=== PATIENT | female | born 1970 | race Caucasian/White ===

== ENCOUNTER 2016-10-08 12:02 | Emergency (ER) | payer SELFPAY ==
[~2016-10-08] VITALS: Ht 175.3 cm; Wt 61.2 kg
[~2016-10-08 12:02] MED LIST: IBUPROFEN200 MG PO; IBUPROFEN600 MG PO; METHOCARBAMOL750 MG PO; NAPROXEN500 MG PO
[2016-10-08] MEDS ORDERED: IBUPROFEN200 MG PO (12:12)
[2016-10-08] MEDS ORDERED: TYLENOL325 MG PO (12:12)
== END 2016-10-08 12:17 | disposition home or self-care (01) ==
LOC: ED 12:02
DX: Z00.8 Encounter for other general examination (principal)

== ENCOUNTER 2016-11-08 08:11 | Emergency (ER) | payer BC ==
[~2016-11-08] VITALS: Ht 175.3 cm; Wt 59.0 kg
[~2016-11-08 08:11] MED LIST changes: +TYLENOL325 MG PO
[2016-11-08] MEDS ORDERED: NORCO 5-325 TA1 EACH PO (08:36)
[2016-11-08] MEDS ORDERED: PENICILLIN V P500 MG PO (08:36)
[2016-11-08] MEDS ORDERED: FLAGYL500 MG PO (08:36)
== END 2016-11-08 09:00 | disposition home or self-care (01) ==
LOC: ED 08:11
DX: K04.7 Periapical abscess without sinus (principal); F17.200 Nicotine dependence, unspecified, uncomplicated; Z90.49 Acquired absence of other specified parts of digestive tract; Z98.51 Tubal ligation status; Z88.8 Allergy status to other drugs, medicaments and biological substances; Z91.02 Food additives allergy status
CPT/HCPCS: 99283